=== PATIENT | female | born 1955 ===

== ENCOUNTER 2017-12-04 08:41 | Outpatient (CLI) | payer OTHER | END 2017-12-04 08:45 | disposition home or self-care (01) | LOC: SONOGRAMA 08:41 | DX: E04.1 Nontoxic single thyroid nodule (principal) ==

== ENCOUNTER → 2017-12-31 | Outpatient (CLI) | payer OTHER | END | disposition home or self-care (01) | LOC: RAD 11:09 | DX: R14.0 Abdominal distension (gaseous) (principal); K59.04 Chronic idiopathic constipation; R19.4 Change in bowel habit; R10.32 Left lower quadrant pain ==

== ENCOUNTER 2018-12-29 05:00 | Day surgery (SDC) | payer OTHER | END 2018-12-29 09:40 | disposition home or self-care (01) | LOC: AMB-ENDOS 05:00 | DX: D12.0 Benign neoplasm of cecum (principal); K57.30 Diverticulosis of large intestine without perforation or abscess without bleeding ==